=== PATIENT | female | born 2005 | race Caucasian/White ===

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

== ENCOUNTER 2023-02-24 19:00 | Emergency (ER) | payer MEDICAID ==
[2023-02-24 19:14] VITALS: BP 138/69; O2SAT 100
[2023-02-24] MEDS ORDERED: LIDOCAINE MPF 2%-EPI 1:200000 10 ML VIAL SUBQ STA (19:48)
[2023-02-24] MEDS ORDERED: LIDOCAINE 2%-EPI 1:100000 20 ML MDV SUBQ STA (20:00)
[2023-02-24] MEDS ORDERED: LIDOCAINE MPF 1%-EPI 1:200000 10 ML VIAL SUBQ STA (20:00)
[2023-02-24] MEDS ORDERED: LIDOCAINE 1%-EPI 1:100000 10 ML MDV SUBQ STA (20:00)
[2023-02-24] MEDS ORDERED: LIDOCAINE MPF 2%-EPI 1:200000 20 ML VIAL SUBQ ONE (20:00)
[2023-02-24] MEDS ORDERED: LIDOCAINE 1%-EPI 1:100000 20 ML MDV SUBQ STA (20:00)
[2023-02-24] MEDS ORDERED: cephALEXin 250 MG CAPSULE PO STA (20:14)
[2023-02-24] MEDS ORDERED: SULFAMETH/TRIMETH DS 800/160 MG TABLET PO STA (20:14)
--- NOTE | 2023-02-24 20:17 | ED Physician Documentation ---
History of Present Illness - Stated complaint Stated Complaint: BEE STING - Chief complaint Chief Complaint: Wound - History obtained from History obtained from: Patient - History of Present Illness Timing: How many weeks ago (1) Pain level max: 6 Pain level now: 5 - Additonal information Additional information: Patient is a 17-year-old female who states that she was stung on the right leg by a wasp last week. She is now having increasing redness, swelling and pain. No fevers. No chills. Nothing makes it better or worse. Has not had similar symptoms previously. Tetanus up-to-date. Patient denies any possibility of . Review of Systems Constitutional: denies: Fever, Chills : denies: Now EGA PD PAST MEDICAL HISTORY - Past Medical History Past Medical History: Yes Endocrine/Autoimmune: HyPOthyroidism - Past Surgical History Past Surgical History: No - Present Medications Home Medications: Ambulatory Orders Medication Instructions Recorded Confirmed Docusate Sodium [Dok] 100 mg PO DAILY 11/18/20 11/18/20 Doxycycline Hyclate 100 mg PO DAILY 11/18/20 11/18/20 Levothyroxine [Synthroid] 25 mcg PO DAILY 11/18/20 11/18/20 Omeprazole 20 mg PO DAILY 11/18/20 11/18/20 Ondansetron [Zuplenz] 4 mg PO Q6HR 11/18/20 11/18/20 Tretinoin/Emollient Base 40 gm TOP DAILY 11/18/20 11/18/20 [Tretinoin 0.05% Emollient Crm] polyethylene glycoL 3350 [Glycolax] 527 gm PO DAILY 11/18/20 11/18/20 Sucralfate [Carafate] 1 gm PO ACHS #60 tablet 11/19/20 Sulfamethox/Trimeth 800/160 1 each PO BID #14 tablet 02/24/23 [Bactrim Ds 800/160] cephALEXin [Keflex] 500 mg PO Q6H #28 cap 02/24/23 - Allergies Allergies/Adverse Reactions: Allergies Allergy/AdvReac Type Severity Reaction Status Date / Time No Known Drug Allergies Allergy Verified 02/24/23 19:07 - Social History Does the pt smoke?: No Smoking Status: Never smoker Does the pt drink ETOH?: No Does the pt have substance abuse?: No - Immunizations Immunizations are current?: Yes - POLST Patient has POLST: No PD ED PE NORMAL - Vitals Vital signs reviewed: Yes - General General: Alert and oriented X 3, No acute distress - HEENT HEENT: Moist mucous membranes - Derm Derm: Warm and dry - Extremities Extremities: Other (R LE - 4x4cm Indurated, erythematous area, there is a 1.5 x 1.5 cm fluctuant area. There is on the anterior aspect of the tibia, proximal. Neurovascular intact) Results - Vitals Vitals: Vital Signs - 24 hr 02/24/23 19:03 Temperature 37.2 C Heart Rate 98 Respiratory 16 Rate Blood Pressure 138/69 H O2 Saturation 100 Oxygen O2 Source Room air Procedures - Abscess I&D (location) RLE Preparation: Chlorhexadine, Lidocaine 1%, With epi Incision: Incised with scalpel, Purulent drainage, Culture obtained Other: Pt tolerated well, Dressing applied, Antibiotic prescribed PD Medical Decision Making - ED course Complexity details: considered differential, d/w patient ED course: 17-year-old female with a small abscess on the anterior aspect of the right lower extremity. This was incised and drained. Tolerated well. No complications. Wound culture sent. Will place on Keflex and Bactrim for home. Patient counseled regarding signs and symptoms for which I believe and urgent re-evaluation would be necessary. Patient with good understanding of and agreement to plan and is comfortable going home at this time This document was made in part using voice recognition software. While efforts are made to proofread this document, sound alike and grammatical errors may occur. Departure - Departure Disposition: 01 Home, Self Care Clinical Impression: Abscess Cellulitis Qualifiers: Site of cellulitis: extremity Site of cellulitis of extremity: lower extremity Laterality: right Qualified Code(s): L03.115 - Cellulitis of right lower limb Condition: Good Instructions: ED Abscess IandD Follow-Up: your,doctor in 3-4 days for wound check [Other] Prescriptions: Sulfamethox/Trimeth 800/160 [Bactrim Ds 800/160] 1 each PO BID #14 tablet cephALEXin [Keflex] 500 mg PO Q6H #28 cap Comments: Your prescriptions were sent to [facility] in [place]. Please take all antibiotics until gone. Keep the wound clean. The wound will heal on its own. We want to keep the skin open to allow the abscess to continue to drain. A wound culture was sent, we will call you if we need to change her antibiotic based on the culture results. Forms: PCP List
== END 2023-02-24 20:35 | disposition home or self-care (01) ==
LOC: ED 19:00
DX: T63.461A Toxic effect of venom of wasps, accidental (unintentional), initial encounter (principal); L02.415 Cutaneous abscess of right lower limb
CPT/HCPCS: 10060; 87070; 87181; 87205; 99283; A9270

== ENCOUNTER 2023-06-30 15:05 | Outpatient (CLI) | payer MEDICAID | END 2023-06-30 15:06 | disposition left against medical advice (07) | LOC: EMS 15:05 | DX: F41.0 Panic disorder [episodic paroxysmal anxiety] (principal) ==

== ENCOUNTER 2023-12-01 18:42 | Emergency (ER) | payer MEDICAID ==
[2023-12-01 19:06] VITALS: BP 153/75; O2SAT 100
--- NOTE | 2023-12-01 19:48 | ED Physician Documentation ---
PD HPI SKIN - Stated complaint Stated Complaint: RASH - Chief complaint Chief Complaint: General - Additional information Additional information: Patient is a 18-year-old female presenting for evaluation of a pruritic rash starting on Tuesday all over her body. Denies any known exposures to anything new. Denies fever, chest pain, shortness of air. Has been using Benadryl as well as Inna without improvement.Denies history of similar reactions in the past. Review of Systems Constitutional: denies: Fever Cardiac: denies: Chest pain / pressure Respiratory: denies: Dyspnea GI: denies: Abdominal Pain Skin: reports: Rash PD PAST MEDICAL HISTORY - Past Medical History Endocrine/Autoimmune: HyPOthyroidism - Past Surgical History Past Surgical History: No - Present Medications Home Medications: Ambulatory Orders Medication Instructions Recorded Confirmed Docusate Sodium [Dok] 100 mg PO DAILY 11/18/20 11/18/20 Doxycycline Hyclate 100 mg PO DAILY 11/18/20 11/18/20 Levothyroxine [Synthroid] 25 mcg PO DAILY 11/18/20 11/18/20 Omeprazole 20 mg PO DAILY 11/18/20 11/18/20 Ondansetron [Zuplenz] 4 mg PO Q6HR 11/18/20 11/18/20 Tretinoin/Emollient Base 40 gm TOP DAILY 11/18/20 11/18/20 [Tretinoin 0.05% Emollient Crm] polyethylene glycoL 3350 [Glycolax] 527 gm PO DAILY 11/18/20 11/18/20 Sucralfate [Carafate] 1 gm PO ACHS #60 tablet 11/19/20 Sulfamethox/Trimeth 800/160 1 each PO BID #14 tablet 02/24/23 [Bactrim Ds 800/160] cephALEXin [Keflex] 500 mg PO Q6H #28 cap 02/24/23 predniSONE [Deltasone] 60 mg PO DAILY 4 Days #12 tablet 12/01/23 - Allergies Allergies/Adverse Reactions: Allergies Allergy/AdvReac Type Severity Reaction Status Date / Time No Known Drug Allergies Allergy Verified 02/24/23 19:07 - Social History Does the pt smoke?: No Smoking Status: Never smoker Does the pt drink ETOH?: No Does the pt have substance abuse?: No - Immunizations Immunizations are current?: Yes - POLST Patient has POLST: No PD ED PE NORMAL - General General: Alert and oriented X 3, No acute distress, Well developed/nourished - HEENT HEENT: Atraumatic, Moist mucous membranes, Pharynx benign (No oral lesions) - Neck Neck: Supple, no meningeal sign - Cardiac Cardiac: RRR, Strong equal pulses - Respiratory Respiratory: No respiratory distress, Clear bilaterally - Derm Derm: Other (Hives And patchy areas of erythema To trunk and extremities, no involvement of palms or mucosal surfaces) Results - Vitals Vitals: Vital Signs - 24 hr 12/01/23 18:54 Temperature 36.4 C L Heart Rate 95 Respiratory 18 Rate Blood Pressure 153/75 H O2 Saturation 100 Oxygen O2 Source Room air PD Medical Decision Making - ED course ED course: Patient presenting for evaluation of rash to torso and extremities. Well- appearing with no signs of labored breathing or respiratory compromise. No signs of anaphylaxis. Patient has been using antihistamines without improvement.Does not appear to be an infection or cellulitis. Concern for possible allergic process. Given widespread distribution of rash will trial a course of prednisone.Patient understands treatment plan, need for close follow- up as well as advised on concerning symptoms to return for. Departure - Departure Disposition: 01 Home, Self Care Clinical Impression: Rash and nonspecific skin eruption Condition: Stable Instructions: ED Dermatitis Non Specific Rash Prescriptions: predniSONE [Deltasone] 60 mg PO DAILY 4 Days #12 tablet Comments: Given the widespread distribution of a rash that is concerning for an allergic process. I am starting you on a course of prednisone as it has not improved with trying antihistamines. However I would continue with the antihistamines including the Inna as well as Benadryl for itching. I have sent a prescription to [facility] in [place]. Return to the ER if you develop any worsening symptoms or signs of infection. Forms: PCP List Discharge Date/Time: 12/01/23 19:54
[2023-12-01] MEDS: predniSONE 20 MG TABLET PO STA (19:51)
== END 2023-12-01 19:54 | disposition home or self-care (01) ==
LOC: ED 18:42
DX: R21 Rash and other nonspecific skin eruption (principal); E03.9 Hypothyroidism, unspecified; Z79.899 Other long term (current) drug therapy
CPT/HCPCS: 99283